=== PATIENT | female | born 1975 | race Caucasian/White ===

== ENCOUNTER 2023-09-03 09:12 | Day surgery (SDC) | payer BC, MEDICARE ==
[~2023-09-03] VITALS: Ht 165.1 cm; Wt 96.1 kg
[2023-09-03] VITALS (9 sets, daily range): BP systolic 121–152; BP diastolic 71–87; PULSE 50–76; RESP 9–16; TEMP 98.4; O2SAT 97–100
[~2023-09-03 09:12] MED LIST: CHOL20002 PO; FURO20TA4 PO; LACT1CAP65 PO; LIDOcaine 1% w/EPI 1:100,000 inj. MDV 50 ML VIAL ONE; cefazolin 2gm/D5W 100mL 100 ML IV ONE; cocaine 4% topical solution 4ml bottle ONE; epiNEPHrine 1 mg/ml 30ml MDV ONE; famotidine 20mg tablet PO ONE; mupirocin 2% ointment 22GM ONE; oxymetazoline 15 ML nasal spray NS ONE; ringers solution, lacted 1,000 ML IV SCH; tranexamic acid inj. 1,000 MG in normal saline IV soln 100ML IV ONE
[2023-09-03] MEDS ORDERED: sevoflurane 250ml liquid IH ONE (12:01)
[2023-09-03] MEDS ORDERED: LIDOcaine 2% (20mg/ml) 5ml vial ONE (12:01)
[2023-09-03] MEDS ORDERED: ondansetron/PF 4mg/2ml inj ONE ×2 (12:01→13:51)
[2023-09-03] MEDS ORDERED: midazolam 1 mg/ML 2ml injection ONE (12:02)
[2023-09-03] MEDS ORDERED: propofol inj 20 ML IV ONE (12:02)
[2023-09-03] MEDS ORDERED: fentaNYL/PF 50MCG/1 ML 2ML syringe ONE (12:02)
[2023-09-03] MEDS ORDERED: tranexamic acid 100mg/ml inj. ONE (12:30)
[2023-09-03] MEDS ORDERED: oxymetazoline 15 ML nasal spray NS ONE (12:40)
[2023-09-03] MEDS ORDERED: cocaine 4% topical solution 4ml bottle TP ONE (12:41)
[2023-09-03] MEDS ORDERED: epiNEPHrine 1 mg/ml 30ml MDV SQ ONE (12:42)
[2023-09-03] MEDS ORDERED: lidocaine 1%/epinephrine 1:100,000 inj. 50ml multi-dose vial IJ ONE (12:44)
[2023-09-03] MEDS ORDERED: mupirocin 2% ointment 22GM TP ONE (12:46)
[2023-09-03] MEDS ORDERED: dexamethasone sod phosphate 4mg/ml inj. ONE (13:24)
[2023-09-03] MEDS ORDERED: acetaminophen 1,000mg/100ml IV 100 ML IV ONE (13:25)
[2023-09-03] MEDS ORDERED: ceFAZolin 1gm IM kit IM ONE (13:34)
--- NOTE | 2023-09-03 13:49 | NUR ---
Received from OR via [facility] to [facility], accompanied by Anesthesiologist KELSI and report given by Anesthesiologist. PT PRESENTS ON 6L VIA MASK WITH SPO2 AT 100%. VSS. PT COMPLAINS OF NAUSEA, ADMINISTERED ZOFRAN. PATIENT IS ABLE TO MAKE HER NEEDS KNOWN. PATIENT IS ABLE TO MOVE ALL EXTREMITIES AND BILATERAL RADIAL PULSES PALPABLE +2. BILATERAL COTTONOID DRESSING CDI.
[2023-09-03] MEDS ORDERED: ringers solution, lacted 1,000 ML IV SCH (13:55)
[2023-09-03] MEDS ORDERED: morphine 2 MG/ML inj. syringe IV PRN (13:55)
[2023-09-03] MEDS ORDERED: labetalol 20mg/4ml (5mg/ml) syringe IV PRN (13:55)
[2023-09-03] MEDS ORDERED: ondansetron/PF 4mg/2ml inj IV PRN (13:55)
[2023-09-03] MEDS ORDERED: proCHLORperazine 10 MG/2 ml inj IV PRN (13:55)
[2023-09-03] MEDS ORDERED: morphine 4 MG/ML inj SYRINge IV PRN (13:55)
[2023-09-03] MEDS ORDERED: meperidine/PF 25mg/ml syringe IV PRN ×3 (13:55)
[2023-09-03] MEDS ORDERED: mupirocin 2% nasal ointment 1gm UD NS ONE (15:00)
[2023-09-03] MEDS ORDERED: salt irrigation nasal spray 45 ML SPRAY NS ONE (15:00)
--- NOTE | 2023-09-03 15:19 | NUR ---
Cottonoid dressing removed at 1420 per protocol. Nasal dressing mcallister and 4x4 gauze applied. Pt had no excessive drainage. Pt had no c/o n/v. Refused further pain medication. DC instructions reviewed and handout given for home. Pt verbalized understanding. All personal belongings on patient including cell phone. Transported via wheelchair to private vehicle without incident.
== END 2023-09-03 15:19 | disposition home or self-care (01) ==
LOC: PRE-OP 09:12
PROVIDERS: ATTEND Otolaryngology
DX: J34.2 Deviated nasal septum (principal); J34.3 Hypertrophy of nasal turbinates; J32.8 Other chronic sinusitis; I10 Essential (primary) hypertension; F41.9 Anxiety disorder, unspecified; F43.10 Post-traumatic stress disorder, unspecified; F17.210 Nicotine dependence, cigarettes, uncomplicated; Z88.5 Allergy status to narcotic agent; Z88.8 Allergy status to other drugs, medicaments and biological substances; Z88.0 Allergy status to penicillin; Z79.899 Other long term (current) drug therapy; Z90.710 Acquired absence of both cervix and uterus; Z98.890 Other specified postprocedural states
CPT/HCPCS: 30140; 30520; 31254; 31256; 61782; 82948; 93005; A6402; J0131; J0171; J0690; J0780; J1100; J2175; J2250; J2405; J2704; J3010; J3490; J7030; J7050; J7120; Z7506; Z7508; Z7512; A4618; A6449; A7000